=== PATIENT | male | born 1960 | race African-American/Black ===

== ENCOUNTER 2023-10-30 10:23 | Emergency (ER) | payer MEDICAID, OTHER ==
[~2023-10-30] VITALS: Ht 190.5 cm; Wt 104.0 kg
[~2023-10-30 10:23] MED LIST: CARI350T28 PO; HYDR-519 PO; MESA800T PO
[2023-10-30 10:34] VITALS: O2SAT 99
[2023-10-30] MEDS ORDERED: ACETAMINOPHEN WITH CODEINE 300/30MG TABLET PO ONE (10:45)
[2023-10-30] MEDS ORDERED: IBUP-2028 PO (12:08)
[2023-10-30] MEDS ORDERED: ACET-2708 PO (12:08)
[2023-10-30 13:06] VITALS: BP 158/80; PULSE 61; RESP 15; TEMP 97.9
== END 2023-10-30 13:13 | disposition home or self-care (01) ==
LOC: ER 10:23
DX: M25.512 Pain in left shoulder (principal); M54.9 Dorsalgia, unspecified; W01.0XXA Fall on same level from slipping, tripping and stumbling without subsequent striking against object, initial encounter; Y93.89 Activity, other specified; Y92.89 Other specified places as the place of occurrence of the external cause; Y99.8 Other external cause status
CPT/HCPCS: 73030; 99283; A4565